=== PATIENT | female | born 1985 | race Caucasian/White ===

== ENCOUNTER → 2017-05-17 | Outpatient (CLI) | payer BC | LOC: LAB 11:32 | DX: F41.1 Generalized anxiety disorder (principal) ==

== ENCOUNTER → 2017-05-20 | Outpatient (CLI) | payer BC | LOC: RAD 07:56 | DX: F41.1 Generalized anxiety disorder (principal); R94.6 Abnormal results of thyroid function studies ==

== ENCOUNTER → 2017-05-24 | Outpatient (CLI) | payer BC | LOC: LAB 16:45 | DX: R94.6 Abnormal results of thyroid function studies (principal) ==